=== PATIENT | female | born 1975 | race Caucasian/White ===

== ENCOUNTER 2024-08-15 13:39 | Outpatient (CLI) | payer SELFPAY ==
[2024-08-15 18:45] LABS: Creatinine,Urine Random 53 mg/dL (Not Estab.)
[2024-08-15 18:45] LABS: Alanine Aminotransferase 15 U/L (12-78); Albumin Level 4.1 g/dl (3.5-5.0); Albumin/Globulin Ratio 1.5 (1.1-1.8); Alkaline Phosphatase 65 U/L (38-126); Aspartate Amino Transferase 22 U/L (14-36); Bilirubin,Total 0.5 mg/dl (0.2-1.3); Blood Urea Nitrogen 11 mg/dl (7-17); Carbon Dioxide 26 mmol/L (22.0-30.0); Chloride 105 mmol/L (98-107); Cholesterol 141 mg/dl (140-200); Estimated Glomerular Filt Rate 90 ml/min (>60); GFR (African American) 109 ML/MIN (>60); Globulin 2.7 g/dL (1.3-3.2); Glucose 97 mg/dl (74-100); Sodium 139 mmol/L (136-145); Total Protein,Serum 6.8 g/dl (6.3-8.2); Triglycerides 112 mg/dl (30-150); VLDL Cholesterol 22 mg/dL (0-40)
[2024-08-15 18:56] LABS: C-Reactive Protein 9.8 mg/L (0-4); Direct LDL Cholesterol 52.22 mg/dL (100-129)
[2024-08-15 19:02] LABS: 25-OH Vitamin D, Total 31.9 ng/mL (30-100)
[2024-08-15 19:04] LABS: Microalbumin < 6.000 mg/L (0-16.7)
[2024-08-15 19:16] LABS: Thyroid Stimulating Hormone 1.88 uIU/mL (0.465-4.68)
[2024-08-15 19:35] LABS: Vitamin B12 318 pg/mL (239-931)
[2024-08-15 19:48] LABS: Chol/HDL Ratio 2.1 (1-3.5); HDL Cholesterol 68 mg/dl (40-60)
== END 2024-08-15 23:59 | disposition home or self-care (01) ==
LOC: LAB.DROPOF 08-16 13:39
PROVIDERS: PCP Nurse Practitioner; Visit Provider Nurse Practitioner
DX: R60.9 Edema, unspecified (principal); Z78.0 Asymptomatic menopausal state; E66.9 Obesity, unspecified; Z13.1 Encounter for screening for diabetes mellitus; Z13.220 Encounter for screening for lipoid disorders; Z68.32 Body mass index [BMI] 32.0-32.9, adult
CPT/HCPCS: 80053; 80061; 82043; 82306; 82570; 82607; 84439; 84443; 86140

== ENCOUNTER 2024-08-22 19:38 | Outpatient (CLI) | payer SELFPAY ==
[2024-08-22 20:00] LABS: Basophils # 0.1 K/mm3 (0-0.2); Basophils % 1.1 % (0.1-2.0); Eosinophils # 0.1 K/mm3 (0.0-0.4); Eosinophils % 2.1 % (0.1-12.0); Hematocrit 43.3 % (37.0-47.0); Hemoglobin 14.9 g/dL (12.2-16.2); Lymphocytes # 1.4 K/mm3 (0.7-4.5); Mean Corpuscular HGB Conc 34.5 g/dL (31.8-35.4); Mean Corpuscular Hemoglobin 31.3 pg (27.0-31.2); Mean Corpuscular Volume 90.6 fl (81-99); Mean Platelet Volume 7.8 fl (7.4-10.4); Monocytes # 0.3 K/mm3 (0.1-1.0); Neutrophils # 3.6 K/mm3 (1.8-7.8); Neutrophils % 65.8 % (37.0-80.0); Platelet Count 325 K/mm3 (142-424); Red Blood Count 4.77 M/mm3 (4.20-5.40); White Blood Count 5.4 K/mm3 (4.8-10.8)
[2024-08-22 20:33] LABS: Hemoglobin A1C 5.1 % (4.0-6.0)
[2024-08-22 21:22] LABS: Erythrocyte Sedimentation Rate 14 mm/hr (0-20)
== END 2024-08-22 23:59 | disposition home or self-care (01) ==
LOC: LAB.DROPOF 19:42
PROVIDERS: PCP Nurse Practitioner; Visit Provider Nurse Practitioner
DX: R60.9 Edema, unspecified (principal); Z78.0 Asymptomatic menopausal state; E66.9 Obesity, unspecified; Z13.1 Encounter for screening for diabetes mellitus; Z13.220 Encounter for screening for lipoid disorders
CPT/HCPCS: 83036; 85025; 85651